=== PATIENT | female | born 1955 | race Caucasian/White ===

== ENCOUNTER → 2016-07-04 | Outpatient (CLI) | payer BC | LOC: BMCIMAGING 07:40 | PROVIDERS: ATTEND Internal Medicine | DX: Z12.31 Encounter for screening mammogram for malignant neoplasm of breast (principal) | CPT/HCPCS: G0202 ==

== ENCOUNTER → 2017-07-09 | Outpatient (CLI) | payer OTHER | LOC: BMCIMAGING 13:35 | DX: Z12.31 Encounter for screening mammogram for malignant neoplasm of breast (principal) ==